=== PATIENT | female | born 1965 | race Caucasian/White ===

== ENCOUNTER 2022-10-27 10:56 | Day surgery (SDC) | payer MEDICARE, OTHER ==
[~2022-10-27] VITALS: Ht 160 cm; Wt 95.0 kg
[2022-10-27 11:10] VITALS: BP 126/74
[2022-10-27] MEDS ORDERED: HYDR-3972 PO (11:26)
[2022-10-27] MEDS ORDERED: AMLO-139 PO (11:26)
[2022-10-27] MEDS ORDERED: CLON-528 PO (11:26)
[2022-10-27] MEDS ORDERED: OXYB5TAB16 PO (11:26)
[2022-10-27] MEDS ORDERED: FLUO20CA39 PO (11:26)
[2022-10-27] MEDS ORDERED: [UNRECOGNIZED DRUG - CODE] IT (11:26)
[2022-10-27] MEDS ORDERED: ARMO200T PO (11:26)
[2022-10-27] MEDS ORDERED: AMO250L PO (11:26)
[2022-10-27] MEDS ORDERED: MIDAZolam 1 MG/ML 5ML VIAL ONE (11:29)
[2022-10-27] MEDS ORDERED: fentaNYL/PF 50MCG/1 ML 2ML syringe ONE (11:29)
[2022-10-27 11:55] VITALS: BP 119/81
[2022-10-27 12:05] VITALS: BP 124/65
[2022-10-27 12:15] VITALS: BP 132/67
[2022-10-27 12:25] VITALS: BP 146/94
== END 2022-10-27 12:30 | disposition home or self-care (01) ==
LOC: GI LAB 10:56
PROVIDERS: ATTEND Internal Medicine Gastroenterology
DX: Z12.11 Encounter for screening for malignant neoplasm of colon (principal); C20 Malignant neoplasm of rectum; K64.8 Other hemorrhoids; F17.210 Nicotine dependence, cigarettes, uncomplicated; G35 Multiple sclerosis; F12.90 Cannabis use, unspecified, uncomplicated; Z88.5 Allergy status to narcotic agent; Z91.048 Other nonmedicinal substance allergy status
CPT/HCPCS: 45380; G0500; J2250; J3010; J7030; Z7512; 88305; 99152; A4620